=== PATIENT | female | born 1945 | race Caucasian/White ===

== ENCOUNTER → 2017-03-04 | Day surgery (SDC) | payer OTHER ==
[~2017-03-04] MED LIST: BUPIVACAINE/EPINEPHRINE 0.5% 50 ML VIAL ONE; DIAZ2 PO; ESTR0.5T PO; FLEX10TA OR; KETOROLAC TROMETHAMINE 30 MG/ML (IVP) VIAL IV PUSH ONE; LACTATED RINGER'S 1000 ML INJ 1,000 ML ONE; MEPERIDINE HCL 25 MG/ML VIAL ONE; MIDAZOLAM HCL 2 MG/2 ML VIAL ONE; MILN25 OR; ONDANSETRON HCL 4 MG/2 ML VIAL IV PUSH ONE; PROPOFOL 200 MG/20 ML AMP IV ONE; ceFAZolin INJ 1,000 MG VIAL ONE
--- NOTE | 2017-03-04 12:45 | MP ---
cc: AMY CAMACHO M.D. DATE OF SURGERY 03/04/2017 PREOPERATIVE DIAGNOSIS Left knee medial meniscus tear. POSTOPERATIVE DIAGNOSIS Left knee medial and lateral meniscus tear. PROCEDURE Left knee arthroscopic partial medial and partial lateral meniscectomy. ANESTHESIA General SURGEON Amy Camacho MD [employer]PER[employer] SURGEON None COMPLICATIONS None known. INDICATION Hannah Ibarra is a 71-year-old female with persistent left knee pain who has an MRI scan which shows a complex tear in the medial meniscus. The options for treatment have been discussed. The risks and benefits have been reviewed and she now presents for arthroscopic surgery. A detailed informed consent has been obtained. PROCEDURE The patient was brought to the operating room. She was placed under general anesthetic. The left lower extremity prepped and draped in the usual sterile fashion. IV antibiotics given. Time-out completed. Marcaine injected about inferolateral portal, a portal made. Blunt trocar used to introduce the cannula and the knee insufflated with saline. The patellofemoral joint appeared normal. The notch appeared normal. Normal-appearing ACL. The lateral compartment showed tearing involving 20-25% depth of the mid body and the posterior horn of the lateral meniscus. We proceeded with arthroscopic partial lateral meniscectomy using a combination of basket forceps and arthroscopic shaver. Follow-up photograph taken here. We then moved into the medial compartment where we saw a much larger unstable complex tear involving the junction of the body in the posterior horn medial meniscus involving 60% of the depth of the meniscus. We proceeded initially with the shaver and then with the arthroscopic biter and then switched over a switching stick. There was a slight amount of bleeding on the periphery and we used cautery to obtain excellent hemostasis, fine-tuned and smoothed. There was some mild chondromalacia on the medial femoral condyle, nothing that was grossly unstable. Final photographs taken. Repeat diagnostic arthroscopy through the lateral portal revealed no loose bodies. The arthroscopic equipment was removed. Marcaine had been injected by the portals. Steri-Strips applied. Sterile dressing applied. The patient was awoken and returned to the recovery room in stable condition. MD LOBO Martinez/PEDRO /8:50 AM /12:38 PM
== END | disposition home or self-care (01) ==
LOC: ESDC 06:59
PROVIDERS: ATTEND Orthopaedic Surgery Sports Medicine
DX: S83.232A Complex tear of medial meniscus, current injury, left knee, initial encounter (principal); S83.282A Other tear of lateral meniscus, current injury, left knee, initial encounter
CPT/HCPCS: 01400; 29880; J0690; J1885; J2175; J2250; J2405; J3010; J7120

== ENCOUNTER 2017-06-01 09:28 | Emergency (ER) | payer OTHER ==
[~2017-06-01] VITALS: Ht 167.6 cm; Wt 91.0 kg
[~2017-06-01 09:28] MED LIST changes: -BUPIVACAINE/EPINEPHRINE 0.5% 50 ML VIAL ONE; -KETOROLAC TROMETHAMINE 30 MG/ML (IVP) VIAL IV PUSH ONE; -LACTATED RINGER'S 1000 ML INJ 1,000 ML ONE; -MEPERIDINE HCL 25 MG/ML VIAL ONE; -MIDAZOLAM HCL 2 MG/2 ML VIAL ONE; -ONDANSETRON HCL 4 MG/2 ML VIAL IV PUSH ONE; -PROPOFOL 200 MG/20 ML AMP IV ONE; -ceFAZolin INJ 1,000 MG VIAL ONE
[2017-06-01 09:31] VITALS: BP 200/90; PULSE 73; RESP 20; TEMP 98; O2SAT 95
[2017-06-01 09:46] VITALS: BP 216/89; PULSE 73; RESP 18; O2SAT 99
[2017-06-01] MEDS ORDERED: BACL20TA PO (09:51)
[2017-06-01] MEDS ORDERED: MELO15TA20 PO (09:51)
[2017-06-01] MEDS ORDERED: ASPI-516 CHEW (09:51)
--- NOTE | 2017-06-01 10:08 | RADRPT ---
EXAM DATE/TIME: 06/01/2017 09:54 [facility] COMPARISON: No previous studies available for comparison. INDICATIONS : Dizzy, headache, fell last night. MEDICAL HISTORY : None. SURGICAL HISTORY : None. ENCOUNTER: Initial ACUITY: 2 days PAIN SCORE: 0/10 LOCATION: Bilateral chest FINDINGS: A single view of the chest demonstrates the lungs to be symmetrically aerated without evidence of mas s, infiltrate or effusion. The cardiomediastinal contours are unremarkable. Osseous structures are intact. CONCLUSION: No acute disease. Sukumar Sampson Jr., MD on June 01, 2017 at 10:05 Board Certified Radiologist. This report was verified electronically.
[2017-06-01 10:12] LABS: AUTOMATED NEUTROPHIL # 4.3 TH/MM3 (1.8-7.7); BASOPHIL # 0.1 TH/MM3 (0-0.2); BASOPHIL % 1.1 % (0.0-2.0); EOSINOPHIL # 0.3 TH/MM3 (0-0.4); EOSINOPHIL % 3.4 % (0.0-4.0); HEMATOCRIT 40.9 % (35.0-46.0); HEMO FLAGS DIFF FINAL; LYMPH % 29.7 % (9.0-44.0); LYMPHOCYTE # 2.2 TH/MM3 (1.0-4.8); MEAN CELL VOLUME 93.6 FL (80.0-100.0); MEAN CORPUSCULAR HEMOGLOBIN 31.4 PG (27.0-34.0); MEAN CORPUSCULAR HGB CONC 33.5 % (32.0-36.0); MONO % 6.4 % (0.0-8.0); NEUT % 59.4 % (16.0-70.0); PLATELET COUNT 208 TH/MM3 (150-450); RED BLOOD COUNT 4.37 MIL/MM3 (4.00-5.30); WHITE BLOOD COUNT 7.4 TH/MM3 (4.0-11.0)
[2017-06-01 10:16] VITALS: BP 195/86
[2017-06-01 10:20] LABS: CHLORIDE 105 MEQ/L (98-107); POTASSIUM 4.2 MEQ/L (3.5-5.1); SODIUM (NA) 140 MEQ/L (136-145)
--- NOTE | 2017-06-01 10:23 | RADRPT ---
EXAM DATE/TIME: 06/01/2017 10:03 [facility] COMPARISON: No previous studies available for comparison. INDICATIONS : Fall. Hit nasion area. RADIATION DOSE: 59.26 CTDIvol (mGy) MEDICAL HISTORY : Anticoagulant therapy. SURGICAL HISTORY : Hysterectomy. ENCOUNTER: Initial ACUITY: 2 days PAIN SCALE: 3/10 LOCATION: cranial TECHNIQUE: Multiple contiguous axial images were obtained of the head. Using automated exposure control and adj ustment of the mA and/or kV according to patient size, radiation dose was kept as low as reasonably a chievable to obtain optimal diagnostic quality images. DICOM format image data is available electro nically for review and comparison. FINDINGS: CEREBRUM: There is mild generalized atrophy. Ventricles are normal given the degree of atrophy. No evidence of midline shift, mass lesion, hemorrhage or acute infarction. No extra-axial fluid collections are se en. POSTERIOR FOSSA: The cerebellum and brainstem demonstrate no abnormality. The 4th ventricle is midline. The cerebell opontine angle is unremarkable. EXTRACRANIAL: Visualized sinuses are clear. SKULL: The calvaria is intact. No evidence of skull fracture. CONCLUSION: No acute intracranial abnormality is identified. Lokesh Pa MD on June 01, 2017 at 10:18 Board Certified Radiologist. This report was verified electronically.
[2017-06-01 10:24] LABS: ANION GAP 11 MEQ/L (5-15); BICARBONATE 24.2 MEQ/L (21.0-32.0); BLOOD UREA NITROGEN 19 MG/DL (7-18); MAGNESIUM 1.9 MG/DL (1.5-2.5); PROTHROMBIN TIME - PATIENT 10.5 SEC (9.8-11.6)
[2017-06-01 10:27] LABS: ALT (GPT) 84 U/L (10-53); AST (GOT) 44 U/L (15-37); GLOMERULAR FILTRATION RATE 84 ML/MIN (>89)
--- NOTE | 2017-06-01 10:27 | RADRPT ---
EXAM DATE/TIME: 06/01/2017 10:03 [facility] COMPARISON: No previous studies available for comparison. INDICATIONS : Fall. Hit nasion area RADIATION DOSE: 34.93 CTDIvol (mGy) MEDICAL HISTORY : Anticoagulant therapy. SURGICAL HISTORY : Hysterectomy. ENCOUNTER: Initial ACUITY: 2 days PAIN SCORE: 4/10 LOCATION: facial TECHNIQUE: Volumetric scanning of the facial bones was performed. Using automated exposure control and adjustme nt of the mA and/or kV according to patient size, radiation dose was kept as low as reasonably achiev able to obtain optimal diagnostic quality images. DICOM format image data is available electronicall y for review and comparison. FINDINGS: ORBITS: The orbital structures are intact. The retroconal structures have a normal configuration. No radiop aque foreign bodies are seen. The lenses are normally located. NASAL BONE: The nasal bones and maxillary spine are intact. ZYGOMATIC ARCHES: Symmetric without evidence of fracture. SINUSES: The maxillary, ethmoid, and frontal sinuses are clear. No air-fluid levels seen. NASAL CAVITY: The nasal septum is intact and midline. The lacrimal ducts are intact. SOFT TISSUES: No radiopaque foreign bodies seen. No soft-tissue swelling is seen. INTRACRANIAL: No acute intracranial abnormality is seen. OTHER: The mandible and pterygoid plates are intact. CONCLUSION: No maxillofacial fracture is identified. Lokesh Pa MD on June 01, 2017 at 10:23 Board Certified Radiologist. This report was verified electronically.
[2017-06-01 10:28] LABS: TOTAL BILIRUBIN ADULT 0.6 MG/DL (0.2-1.0)
[2017-06-01 10:29] LABS: ALKALINE PHOSPHATASE 80 U/L (45-117)
--- NOTE | 2017-06-01 10:36 | PD ---
HPI Chief Complaint: Fall Time Seen by Provider: 09:37 Travel History International Travel<30 days: No Contact w/Intl Traveler<30days: No Traveled to known affect area: No History of Present Illness HPI 71-year-old female presents with where she got up out of bed last night at 9 PM to go the bathroom and turn off the TV while she was still awake and fell out of bed. She states she does not think she lost consciousness but she is not for sure. She has an abrasion to her nose that was bleeding initially that has now stopped. She states she's having pain over that area and denies other specific complaints. She states 2 weeks she's been having pain to her left neck that is sharp and worse when she moves. The pain is constant. Her primary care physician placed her on a muscle relaxant. She denies any other concurrent complaints at this time. She denies other modifying factors. PFSH Past Medical History Hx Anticoagulant Therapy: Yes (BABY ASPIRIN) Diabetes: No Diminished Hearing: No Influenza Vaccination: Yes ?: Not Past Surgical History Hysterectomy: Yes Social History Alcohol Use: Yes (OCC. WINE) Tobacco Use: No Substance Use: No Allergies-Medications (Allergen,Severity, Reaction): Coded Allergies: No Known Allergies (Verified Adverse Reaction, Unknown, 06/01/17) Reported Meds & Prescriptions Reported Meds & Active Scripts Active Reported Aspirin 81 Mg Chew 81 Mg CHEW DAILY Meloxicam 15 Mg Tab 15 Mg PO DAILY Baclofen 20 Mg Tab 20 Mg PO TID Review of Systems Except as stated in HPI: all other systems reviewed are Neg Physical Exam Narrative General: 71 y/o patient in no apparent distress Skin: trauma noted to nose with abrasion Eyes: Pupils equal, eomi ENT: no septal hematoma NECK: no pain with palpation in midline, tender to left trapezius, nexus criteria negative Cardiovascular: Regular rate and rhythm Respiratory: Normal respiratory effort noted, clear to auscultation bilaterally Abdomen: soft, nontender, nondistended Back: No step-offs, midline spine nontender with palpation Extremities: No pain over main joints with range of motion Neuro: awake, alert, sensation and motor grossly intact Data Data Last Documented VS Vital Signs Date Time Temp Pulse Resp B/P (MAP) Pulse Ox O2 Delivery O2 Flow Rate FiO2 06/01/17 11:35 06/01/17 11:06 69 18 97 Room Air 06/01/17 09:31 98.0 Orders Orders Magnesium (Mg) (06/01/17 09:44) Phosphorus (Po4) (06/01/17 09:44) Complete Blood Count With Diff (06/01/17 09:44) Comprehensive Metabolic Panel (06/01/17 09:44) Ckmb (Isoenzyme) Profile (06/01/17 09:44) Troponin I (06/01/17 09:44) Act Partial Throm Time (Ptt) (06/01/17 09:44) Prothrombin Time / Inr (Pt) (06/01/17 09:44) Ct Brain W/O Iv Contrast(Rout) (06/01/17 ) Chest, Single Ap (06/01/17 ) Electrocardiogram (06/01/17 ) Iv Access Insert/Monitor (06/01/17 09:44) Ecg Monitoring (06/01/17 09:44) Oximetry (06/01/17 09:44) Ct Facial Bones W/O Iv Cont (06/01/17 ) Ed Discharge Order (06/01/17 11:17) Labs Laboratory Tests Test 06/01/17 10:00 White Blood Count 7.4 TH/MM3 Red Blood Count 4.37 MIL/MM3 Hemoglobin 13.7 GM/DL Hematocrit 40.9 % Mean Corpuscular Volume 93.6 FL Mean Corpuscular Hemoglobin 31.4 PG Mean Corpuscular Hemoglobin Concent 33.5 % Red Cell Distribution Width 13.0 % Platelet Count 208 TH/MM3 Mean Platelet Volume 9.5 FL Neutrophils (%) (Auto) 59.4 % Lymphocytes (%) (Auto) 29.7 % Monocytes (%) (Auto) 6.4 % Eosinophils (%) (Auto) 3.4 % Basophils (%) (Auto) 1.1 % Neutrophils # (Auto) 4.3 TH/MM3 Lymphocytes # (Auto) 2.2 TH/MM3 Monocytes # (Auto) 0.5 TH/MM3 Eosinophils # (Auto) 0.3 TH/MM3 Basophils # (Auto) 0.1 TH/MM3 CBC Comment DIFF FINAL Differential Comment Prothrombin Time 10.5 SEC Prothromb Time International Ratio 1.0 RATIO Activated Partial Thromboplast Time 25.0 SEC Blood Urea Nitrogen 19 MG/DL Creatinine 0.69 MG/DL Random Glucose 130 MG/DL Total Protein 8.0 GM/DL Albumin 3.7 GM/DL Calcium Level 8.6 MG/DL Phosphorus Level 3.0 MG/DL Magnesium Level 1.9 MG/DL Alkaline Phosphatase 80 U/L Aspartate Amino Transf (AST/SGOT) 44 U/L Alanine Aminotransferase (ALT/SGPT) 84 U/L Total Bilirubin 0.6 MG/DL Sodium Level 140 MEQ/L Potassium Level 4.2 MEQ/L Chloride Level 105 MEQ/L Carbon Dioxide Level 24.2 MEQ/L Anion Gap 11 MEQ/L Estimat Glomerular Filtration Rate 84 ML/MIN Total Creatine Kinase 76 U/L Troponin I LESS THAN 0.02 NG/ML MDM Medical Decision Making Medical Screen Exam Complete: Yes Emergency Medical Condition: Yes Medical Record Reviewed: Yes (past history confirmed) Interpretation(s) EKG shows NSR, no ST elevation or depression, and no arrhythmias. No significant T-wave inversions. CBC & BMP Diagram 06/01/17 10:00 Total Protein 8.0, Albumin 3.7, Calcium Level 8.6, Phosphorus Level 3.0, Magnesium Level 1.9, Alkaline Phosphatase 80, Aspartate Amino Transf (AST/SGOT) 44 H, Alanine Aminotransferase (ALT/SGPT) 84 H, Total Bilirubin 0.6 Last [address] 06/01/17 0000 Signed Impressions: Service Date/Time: Thursday, June 01, 2017 10:03 - CONCLUSION: No maxillofacial fracture is identified. Lokesh Pa MD Head CT 06/01/17 0000 Signed Impressions: Service Date/Time: Thursday, June 01, 2017 10:03 - CONCLUSION: No acute intracranial abnormality is identified. Lokesh Pa MD Chest X-Ray 06/01/17 0000 Signed Impressions: Service Date/Time: Thursday, June 01, 2017 09:54 - CONCLUSION: No acute disease. Sukumar Sampson Jr., MD Differential Diagnosis Anemia, renal failure, bleed, fracture, atypical syncope Narrative Course Will check blood work, imaging and reevaluate ED workup no acute. Patient states she had 2 alcoholic drinks last night like she usually does and was laying in bed when she got up and fell. Initial testing shows no emergent findings here. Patient denies any new complaints, all questions answered. Patient knows that follow up is incumbent on them and to return to the emergency room immediately if new or worsening symptoms develop. Patient given strict return precautions, vitals reviewed and are normal, agrees to further workup as an outpatient. Diagnosis Primary Impression: Fall Qualified Codes: W19.XXXA - Unspecified fall, initial encounter Additional Impression: Nasal abrasion Qualified Codes: S00.31XA - Abrasion of nose, initial encounter Patient Instructions: General Instructions Additional Instructions: return as needed, follow with primary tommorrow, tylenol as needed Med/Other Pt SpecificInfo: No Change to Meds Disposition: 01 DISCHARGE HOME Condition: Stable Natasha Alvarez MD Jun 01, 2017 10:36
[2017-06-01 10:43] LABS: CREATINE KINASE 76 U/L (26-192)
[2017-06-01 11:06] VITALS: BP 156/79; PULSE 69; RESP 18; O2SAT 97
--- NOTE | 2017-06-01 13:58 | EKG ---
Date Performed: 06/01/2017 Time Performed: 09:51:27 PTAGE: 71 years EKG: Sinus rhythm NORMAL ECG PREVIOUS TRACING : 11/19/2008 18.21 Compared to prior tracing no significant change DOCTOR: Ronny Cabello Interpretating Date/Time 06/01/2017 13:57:12
== END 2017-06-01 11:40 | disposition home or self-care (01) ==
LOC: PHED 09:28
DX: S00.31XA Abrasion of nose, initial encounter (principal); M54.2 Cervicalgia; R42 Dizziness and giddiness; R51 Headache; W06.XXXA Fall from bed, initial encounter; Z79.82 Long term (current) use of aspirin
CPT/HCPCS: 70450; 70486; 71010; 80053; 82550; 83735; 84100; 84484; 85025; 85610; 85730; 93005; 99285